=== PATIENT | female | born 1970 | race American Indian/Alaskan Native ===

== ENCOUNTER 2016-02-29 14:14 | Outpatient (CLI) | payer MEDICAID ==
--- NOTE | 2016-02-29 15:31 | Mammography Report ---
RIGHT DIGITAL DIAGNOSTIC MAMMOGRAM : 02/29/16 14:14:00 CLINICAL: Six month followup asymmetries. COMPARISON:07/14/15 FINDINGS: Routine views plus a spot compression MLO view were performed and demonstrate a stable fibroglandular pattern and asymmetries. Ultrasound of inferior left breast was performed and demonstrated normal fibroglandular and fatty structures. No mass, cyst or shadowing. IMPRESSION: Stable benign asymmetries.Negative right breast ultrasound. BI-RADS CATEGORY: 2 - - Benign RECOMMENDATION: Routine mammographic screening. ACR BI-RADS MAMMOGRAPHIC CODES: 0 = Needs additional imaging evaluation; 1 = Negative; 2 = Benign; 3 = Probably benign; 4 = Suspicious; 5 = Malignant; 6 = Known biopsy-proven malignancy COMMENT: 1. Dense breast tissue, i.e., adenosis, fibrocystic changes, etc., may obscure an underlying neoplasm. 2. Approximately 10% of cancers are not detected with mammography. 3. A negative mammography report should not delay biopsy if a clinically suspicious mass is present. COMMENT: Patient follow-up letters are generated via our [employer] application.
== END 2016-02-29 14:15 | disposition home or self-care (01) ==
LOC: SPVWC 14:14
PROVIDERS: ATTEND Obstetrics & Gynecology
DX: R92.8 Other abnormal and inconclusive findings on diagnostic imaging of breast (principal)
CPT/HCPCS: 76642; G0206

== ENCOUNTER 2016-03-21 13:02 | Emergency (ER) | payer MEDICAID ==
[2016-03-21 21:36] VITALS: BP 175/87
--- NOTE | 2016-03-21 22:07 | Emergency Department Report ---
ED General Adult HPI - General Chief complaint: High BP Stated complaint: ELEVATED BP Time Seen by Provider: 03/21/16 21:12 Source: family Mode of arrival: Ambulatory Limitations: No Limitations - History of Present Illness Initial comments: This is a really pleasant mentally handicapped individual who is brought in by her mixing picker tender due to noting elevated blood pressure at her day program. She is not expressing any complaints. Patient is compliant on her medications. And at her baseline in general. -: unknown Severity scale (0 -10): 0 Improves with: none Worsens with: none Treatments Prior to Arrival: none - Related Data Home Medications Medication Instructions Recorded Confirmed Last Taken Losartan [Cozaar] 1 tab PO DAILY 05/08/14 05/13/14 05/13/14 07:00 Metoprolol [Lopressor TAB] 1 tab PO DAILY 05/08/14 05/13/14 05/13/14 07:00 Montelukast [Singulair] 1 tab PO QHS 05/08/14 05/13/14 05/12/14 Simvastatin [Zocor] 1 tab PO QHS 05/08/14 05/13/14 05/12/14 carBAMazepine [TEGretol] 200 mg PO Q12HR 05/08/14 05/13/14 05/13/14 07:00 medroxyPROGESTERone ACETATE 150 mg IM [id number] 05/08/14 05/08/14 05/03/14 12:00 [Depo-Provera (Contraception)] risperiDONE [RisperiDONE] 1 mg PO BID 05/08/14 05/13/14 05/13/14 07:00 Previous Rx's Medication Instructions Recorded Last Taken Type HYDROcodone/APAP 5-325 [[place] 1 each PO Q6HR PRN #10 tablet 05/13/14 Unknown Rx 5-325 mg TAB] Hydrochlorothiazide [HCTZ] 25 mg PO QDAY #30 tablet 03/21/16 Unknown Rx Allergies Allergy/AdvReac Type Severity Reaction Status Date / Time No Known Allergies Allergy Unverified 05/08/14 17:27 ED Review of Systems ROS: Stated complaint: ELEVATED BP Other details as noted in HPI Comment: Unobtainable due to pts medical conditions (mild mentally handicapped. ) Constitutional: denies: chills, fever Eyes: denies: eye pain ENT: denies: throat pain Respiratory: denies: cough Cardiovascular: denies: chest pain ED Past Medical Hx - Past Medical History Previous Medical History?: Yes Hx Hypertension: Yes - Surgical History Past Surgical History?: No - Social History Smoking Status: Never Smoker Substance Use Type: None - Medications Home Medications: Home Medications Medication Instructions Recorded Confirmed Last Taken Type Losartan [Cozaar] 1 tab PO DAILY 05/08/14 05/13/14 05/13/14 07:00 History Metoprolol [Lopressor TAB] 1 tab PO DAILY 05/08/14 05/13/14 05/13/14 07:00 History Montelukast [Singulair] 1 tab PO QHS 05/08/14 05/13/14 05/12/14 History Simvastatin [Zocor] 1 tab PO QHS 05/08/14 05/13/14 05/12/14 History carBAMazepine [TEGretol] 200 mg PO Q12HR 05/08/14 05/13/14 05/13/14 07:00 History medroxyPROGESTERone ACETATE 150 mg IM [id number] 05/08/14 05/08/14 05/03/14 12:00 History [Depo-Provera (Contraception)] risperiDONE [RisperiDONE] 1 mg PO BID 05/08/14 05/13/14 05/13/14 07:00 History HYDROcodone/APAP 5-325 [[place] 1 each PO Q6HR PRN #10 tablet 05/13/14 Unknown Rx 5-325 mg TAB] Hydrochlorothiazide [HCTZ] 25 mg PO QDAY #30 tablet 03/21/16 Unknown Rx ED Physical Exam - General Limitations: No Limitations General appearance: alert, in no apparent distress - Head Head exam: Present: atraumatic, normocephalic - Eye Eye exam: Present: normal appearance. Absent: scleral icterus - ENT ENT exam: Present: normal exam, mucous membranes moist - Neck Neck exam: Present: normal inspection. Absent: tenderness - Respiratory Respiratory exam: Present: normal lung sounds bilaterally. Absent: wheezes - Cardiovascular Cardiovascular Exam: Present: regular rate. Absent: systolic murmur, diastolic murmur - GI/Abdominal GI/Abdominal exam: Present: soft. Absent: tenderness - Extremities Exam Extremities exam: Present: normal inspection. Absent: tenderness, pedal edema, calf tenderness - Neurological Exam Neurological exam: Present: alert, oriented X3 - Psychiatric Psychiatric exam: Present: other (giggling and somewhat silly here) - Skin Skin exam: Present: warm, dry, intact ED Course Vital Signs 03/21/16 03/21/16 14:32 21:00 Temperature 97.6 F 98.2 F Pulse Rate 77 76 Respiratory 16 18 Rate Blood Pressure 157/98 Blood Pressure 175/87 [Right] O2 Sat by Pulse 100 98 Oximetry - Reevaluation(s) Reevaluation #1: 03/22/16 05:33 This is a pleasant individual who is agreeable to talk with. There isn't anything that I can determine that seems emergent about her visit. I did indicate to the mixing picker tender that I'm happy to try her on another blood pressure medication but that really she needs follow up with her primary care physician for continuity of care. We'll trial her on hctz. Safe for home Critical care attestation.: If time is entered above; I have spent that time in minutes in the direct care of this critically ill patient, excluding procedure time. ED Disposition Clinical Impression: Hypertension Qualifiers: Hypertension type: essential hypertension Qualified Code(s): I10 - Essential ( primary) hypertension Disposition: DISCHARGED TO HOME OR SELFCARE Is pt being admited?: No Does the pt Need Aspirin: No Condition: Stable Instructions: Hypertension (ED) Additional Instructions: I am starting you on HCTZ in addition to your Losartan and Metoprolol. Keep a log of how your pressures are with this. Follow with your pcp for continued management. Prescriptions: Hydrochlorothiazide [HCTZ] 25 mg PO QDAY #30 tablet Referrals: PRIMARY MD ARDIANA [Primary Care Provider] - 3-5 Days Time of Disposition: 22:06
== END 2016-03-21 22:22 | disposition home or self-care (01) ==
LOC: ED 13:02
DX: I10 Essential (primary) hypertension (principal)
CPT/HCPCS: 99282

== ENCOUNTER 2017-03-09 18:43 | Emergency (ER) | payer MEDICAID | END 2017-03-09 18:50 | disposition left against medical advice (07) | LOC: ED 18:43 | DX: R50.9 Fever, unspecified (principal); Z53.21 Procedure and treatment not carried out due to patient leaving prior to being seen by health care provider ==

== ENCOUNTER 2017-04-04 13:55 | Outpatient (CLI) | payer MEDICAID ==
--- NOTE | 2017-04-04 14:30 | Mammography Report ---
BILATERAL DIGITAL SCREENING MAMMOGRAM with CAD: 04/04/17 13:55:00 CLINICAL: Routine screening. COMPARISON:07/14/15 FINDINGS: The breasts are heterogeneously dense, which may obscure small masses. No mass, architectural distortion or suspicious calcifications. IMPRESSION: No mammographic evidence of malignancy. BI-RADS CATEGORY: 1 - - Negative RECOMMENDATION: Routine mammographic screening in one year. COMMENT: Patient follow-up letters are generated by our [employer] application.
== END 2017-04-04 13:56 | disposition home or self-care (01) ==
LOC: SPVWC 13:55
PROVIDERS: ATTEND Obstetrics & Gynecology
DX: Z12.31 Encounter for screening mammogram for malignant neoplasm of breast (principal)
CPT/HCPCS: 77067